=== PATIENT | male | born 1970 ===

== ENCOUNTER 2019-03-26 15:04 | Inpatient (IN) | payer OTHER ==
[~2019-03-26] VITALS: Ht 180.3 cm; Wt 106.6 kg
[2019-03-26] MEDS ORDERED: ASPIR 8181 MG (15:18)
[2019-03-26] MEDS ORDERED: PLAVIX75 MG (15:18)
[2019-03-26] MEDS ORDERED: FORTAMET1000 MG (15:19)
[2019-03-26] MEDS ORDERED: ATACAND32 MG (15:20)
[2019-03-26] MEDS ORDERED: TOPROL XL50 M1 (15:20)
[2019-03-26] MEDS ORDERED: PENTOXIFYLLINE400 MG (15:21)
--- NOTE | 2019-03-26 15:27 | NUR ---
SE RECIBE PACIENTE ALERTA Y ORIENTADO REFIERE LO ENVIO EL DR. ULRICH BELLA A ANTONIO DE EMERGENCIA POR GANGRENA EN DODO PEQUEUENO DEL PIES DERECHO. INDICA TENER MUCHO DOLOR. PACIENTE AL MOMENTO PRESENTA FIERE 102.2.SE ACOMODA PACIENTE EN CAMA Y SE ENTREGA A MEDICA DE [place].
--- NOTE | 2019-03-26 16:52 | NUR ---
SE ORIENTA PTE SOBRE TX MEDICO EL CUAL REFIERE ENTENDER,SE LE EXTRAEN MUESTRAS BAJO MEDIDAS,SE CANALIZA Y SE NOTIFICA PLACA PENDIENTE.
--- NOTE | 2019-03-26 20:04 | NUR ---
SE JUSTIN MUESTRAS DE BC, SED RATE Y ULCER CULTURE. PTE EN ESPERA DE CONSULTA CON MEDICINA INTERNA.
[2019-05-07] MEDS ORDERED: CLOTRIMAZOLE15 GM TOP (15:31)
[2019-05-07] MEDS ORDERED: NEURONTIN600 MG PO (15:31)
[2019-05-07] MEDS ORDERED: HUMALOG100 UNIT/1 SUBCUTANEO ×2 (15:31)
[2019-05-07] MEDS ORDERED: Lantus 1000 UNITS/10 SUBCUTANEO (15:31)
[2019-05-07] MEDS ORDERED: INTESTINEX680 M1 PO (15:31)
[2019-05-07] MEDS ORDERED: CILOSTAZOL50 MG PO (15:31)
[2019-05-07] MEDS ORDERED: B Complex CAPSULE PO (15:31)
[2019-05-07] MEDS ORDERED: TOPROL XL100 M1 PO (15:31)
[2019-05-07] MEDS ORDERED: AMITRIPTYLINE H50 MG PO (15:31)
[2019-05-07] MEDS ORDERED: FERROUS SULFAT325 M1 PO (15:31)
== END 2019-05-07 17:32 | disposition home or self-care (01) | DRG 617 ==
LOC: ER 15:04 → MEDI 22:55 → MEDJ 22:55
PROVIDERS: Specialist; ADMIT Internal Medicine Cardiovascular Disease
PROC: 8E0ZXY6 Isolation (ICD-10-PCS; 2019-03-27)
PROC: B43FZZZ Magnetic Resonance Imaging (MRI) of Right Lower Extremity Arteries (ICD-10-PCS; 2019-03-28)
PROC: 0Y6M0ZF Detachment at Right Foot, Partial 5th Ray, Open Approach (ICD-10-PCS; principal; 2019-04-02 15:00)
PROC: 0JDQ3ZZ Extraction of Right Foot Subcutaneous Tissue and Fascia, Percutaneous Approach (ICD-10-PCS; 2019-04-07)
PROC: 0Y6M0ZD Detachment at Right Foot, Partial 4th Ray, Open Approach (ICD-10-PCS; 2019-04-09)
PROC: 02HV33Z Insertion of Infusion Device into Superior Vena Cava, Percutaneous Approach (ICD-10-PCS; 2019-04-11)
PROC: 0JDQ3ZZ Extraction of Right Foot Subcutaneous Tissue and Fascia, Percutaneous Approach (ICD-10-PCS; 2019-04-16)
PROC: BT43ZZZ Ultrasonography of Bilateral Kidneys (ICD-10-PCS; 2019-04-16)
PROC: 0JDQ3ZZ Extraction of Right Foot Subcutaneous Tissue and Fascia, Percutaneous Approach (ICD-10-PCS; 2019-04-22)
PROC: 0JDQ3ZZ Extraction of Right Foot Subcutaneous Tissue and Fascia, Percutaneous Approach (ICD-10-PCS; 2019-04-29)
PROC: 0JDQ3ZZ Extraction of Right Foot Subcutaneous Tissue and Fascia, Percutaneous Approach (ICD-10-PCS; 2019-05-06)
DX: E11.69 Type 2 diabetes mellitus with other specified complication (principal); M86.171 Other acute osteomyelitis, right ankle and foot; E11.52 Type 2 diabetes mellitus with diabetic peripheral angiopathy with gangrene; L97.518 Non-pressure chronic ulcer of other part of right foot with other specified severity; I96 Gangrene, not elsewhere classified; F33.9 Major depressive disorder, recurrent, unspecified; L03.115 Cellulitis of right lower limb; N17.9 Acute kidney failure, unspecified; E11.621 Type 2 diabetes mellitus with foot ulcer; E11.21 Type 2 diabetes mellitus with diabetic nephropathy; E11.319 Type 2 diabetes mellitus with unspecified diabetic retinopathy without macular edema; Z91.14 Patient's other noncompliance with medication regimen; I10 Essential (primary) hypertension; E11.610 Type 2 diabetes mellitus with diabetic neuropathic arthropathy; Z79.4 Long term (current) use of insulin; B95.62 Methicillin resistant Staphylococcus aureus infection as the cause of diseases classified elsewhere; B96.20 Unspecified Escherichia coli [E. coli] as the cause of diseases classified elsewhere; F10.21 Alcohol dependence, in remission; E11.65 Type 2 diabetes mellitus with hyperglycemia; D63.8 Anemia in other chronic diseases classified elsewhere; B95.4 Other streptococcus as the cause of diseases classified elsewhere
CPT/HCPCS: 73725

== ENCOUNTER 2021-01-24 16:11 | Inpatient (IN) | payer OTHER ==
[~2021-01-24] VITALS: Ht 177.8 cm; Wt 106.6 kg
[~2021-01-24 16:11] MED LIST: AMITRIPTYLINE H50 MG PO; ASPIR 8181 MG; ATACAND32 MG; B Complex CAPSULE PO; CILOSTAZOL50 MG PO; CLOTRIMAZOLE15 GM TOP; FERROUS SULFAT325 M1 PO; FORTAMET1000 MG; HUMALOG100 UNIT/1 SUBCUTANEO; INTESTINEX680 M1 PO; Lantus 1000 UNITS/10 SUBCUTANEO; NEURONTIN600 MG PO; PENTOXIFYLLINE400 MG; PLAVIX75 MG; TOPROL XL100 M1 PO; TOPROL XL50 M1
[2021-02-01] MEDS ORDERED: PLAVIX75 MG PO (14:48)
[2021-02-01] MEDS ORDERED: METOPROLOL TART50 MG PO (14:48)
[2021-02-01] MEDS ORDERED: ATACAND32 MG PO (14:48)
== END 2021-02-01 15:34 | disposition home or self-care (01) | DRG 239 ==
LOC: ER 16:11 → MEDI 20:29
PROVIDERS: Specialist; ADMIT Internal Medicine; ATTEND Internal Medicine
PROC: BT4JZZZ Ultrasonography of Kidneys and Bladder (ICD-10-PCS; 2021-01-25)
PROC: 8E0ZXY6 Isolation (ICD-10-PCS; 2021-01-25)
PROC: B44HZZZ Ultrasonography of Bilateral Lower Extremity Arteries (ICD-10-PCS; 2021-01-25)
PROC: 0Y6H0Z2 Detachment at Right Lower Leg, Mid, Open Approach (ICD-10-PCS; principal; 2021-01-27 09:00)
DX: I96 Gangrene, not elsewhere classified (principal); A41.9 Sepsis, unspecified organism; N17.8 Other acute kidney failure; R65.10 Systemic inflammatory response syndrome (SIRS) of non-infectious origin without acute organ dysfunction; E87.1 Hypo-osmolality and hyponatremia; E11.40 Type 2 diabetes mellitus with diabetic neuropathy, unspecified; E11.610 Type 2 diabetes mellitus with diabetic neuropathic arthropathy; E11.319 Type 2 diabetes mellitus with unspecified diabetic retinopathy without macular edema; E11.65 Type 2 diabetes mellitus with hyperglycemia; Z79.4 Long term (current) use of insulin; E11.22 Type 2 diabetes mellitus with diabetic chronic kidney disease; I12.9 Hypertensive chronic kidney disease with stage 1 through stage 4 chronic kidney disease, or unspecified chronic kidney disease; N18.9 Chronic kidney disease, unspecified; B35.3 Tinea pedis; D50.0 Iron deficiency anemia secondary to blood loss (chronic); D72.828 Other elevated white blood cell count; M79.2 Neuralgia and neuritis, unspecified; Z20.822 Contact with and (suspected) exposure to COVID-19; Z89.421 Acquired absence of other right toe(s)

== ENCOUNTER 2021-07-07 14:01 | Inpatient (IN) | payer OTHER ==
[~2021-07-07] VITALS: Ht 182.9 cm; Wt 102.1 kg
[~2021-07-07 14:01] MED LIST changes: +ATACAND32 MG PO; +METOPROLOL TART50 MG PO; +PLAVIX75 MG PO
== END 2021-07-15 17:25 | disposition home or self-care (01) | DRG 256 ==
LOC: ER 14:01 → MEDI 21:39
PROVIDERS: Specialist; ADMIT Internal Medicine; ATTEND Internal Medicine
PROC: B43GZZZ Magnetic Resonance Imaging (MRI) of Left Lower Extremity Arteries (ICD-10-PCS; 2021-07-08)
PROC: 0Y6S0Z3 Detachment at Left 2nd Toe, Low, Open Approach (ICD-10-PCS; principal; 2021-07-10 14:00)
DX: E11.52 Type 2 diabetes mellitus with diabetic peripheral angiopathy with gangrene (principal); L97.528 Non-pressure chronic ulcer of other part of left foot with other specified severity; I96 Gangrene, not elsewhere classified; L08.89 Other specified local infections of the skin and subcutaneous tissue; B95.62 Methicillin resistant Staphylococcus aureus infection as the cause of diseases classified elsewhere; I10 Essential (primary) hypertension; Z79.4 Long term (current) use of insulin

== ENCOUNTER 2021-09-18 10:46 | Inpatient (IN) | payer OTHER ==
[~2021-09-18] VITALS: Ht 160 cm; Wt 68.0 kg
[2021-09-18] MEDS ORDERED: LANTUS SOL100 UNIT/1 SQ (11:22)
[2021-09-18] MEDS ORDERED: NORVASC5 MG PO (11:22)
[2021-09-18] MEDS ORDERED: HUMALOG100 UNIT/2 SQ (11:22)
[2021-09-18] MEDS ORDERED: LIPITOR80 MG PO (11:23)
[2021-09-18] MEDS ORDERED: NEURONTIN300 MG PO (11:23)
--- NOTE | 2021-09-18 11:29 | NUR ---
SE REICBE PACIENTE ALERTA Y ORIENTADO X3 QUIEN REFIERE TENER GANGRENA EN EL DEDO DEL PIE DERECHO. SE MONITOREAN S/V Y SE UBICA PACIENTE.
--- NOTE | 2021-09-18 12:39 | NUR ---
PTE EVALUADO POR LA DRA PRADO QUIEN ORDENA EL TX. SE ORIENTA SOBRE EL TX ORDENADO, LO CUAL REFIERE ENTENDER, SE REALIZAN PRUEBAS DE LABORATORIO Y SE ADMINISTRAN MEDICAMENTOS JEANNIE ORDEN MEDICA Y SIGUIENDO MEDIDAS ASEPTICAS. AGATHA X NOTIFICADOS A PERSONAL DE [place].
== END 2021-09-27 14:11 | disposition home or self-care (01) | DRG 256 ==
LOC: ER 10:46 → SURH 13:26 → SEC-K 13:26 → SURH 15:26
PROVIDERS: Specialist; ADMIT Internal Medicine; ATTEND Internal Medicine
PROC: B24BZZZ Ultrasonography of Heart with Aorta (ICD-10-PCS; 2021-09-19)
PROC: B345ZZZ Ultrasonography of Bilateral Common Carotid Arteries (ICD-10-PCS; 2021-09-19)
PROC: 0JDR0ZZ Extraction of Left Foot Subcutaneous Tissue and Fascia, Open Approach (ICD-10-PCS; 2021-09-20)
PROC: 0Y6U0Z0 Detachment at Left 3rd Toe, Complete, Open Approach (ICD-10-PCS; principal; 2021-09-20 15:00)
DX: E11.52 Type 2 diabetes mellitus with diabetic peripheral angiopathy with gangrene (principal); T81.42XA Infection following a procedure, deep incisional surgical site, initial encounter; M86.172 Other acute osteomyelitis, left ankle and foot; N17.8 Other acute kidney failure; I13.0 Hypertensive heart and chronic kidney disease with heart failure and stage 1 through stage 4 chronic kidney disease, or unspecified chronic kidney disease; L08.89 Other specified local infections of the skin and subcutaneous tissue; B95.62 Methicillin resistant Staphylococcus aureus infection as the cause of diseases classified elsewhere; B95.2 Enterococcus as the cause of diseases classified elsewhere; B96.89 Other specified bacterial agents as the cause of diseases classified elsewhere; Z79.4 Long term (current) use of insulin; I50.9 Heart failure, unspecified; E11.22 Type 2 diabetes mellitus with diabetic chronic kidney disease; E66.8 Other obesity; G47.39 Other sleep apnea; N18.30 Chronic kidney disease, stage 3 unspecified; Z20.822 Contact with and (suspected) exposure to COVID-19